=== PATIENT | male | born 1975 | race Caucasian/White ===

== ENCOUNTER 2018-03-23 07:39 | Day surgery (SDC) | payer BC ==
[2018-03-23] MEDS: Lactated Ringers 1,000 ML IV SCH (08:39)
[2018-03-23] MEDS: Simethicone Drops 40 MG/0.6 ML 30 ML Bottle ONE ×2 (09:28)
--- NOTE | 2018-03-23 09:40 | PCM.OPNOTE ---
- General Post-Op/Procedure Note Date of Surgery/Procedure: 03/23/18 Operative Procedure(s): c scope Findings: internal hemorrhoids Pre Op Diagnosis: hematochezia Post-Op Diagnosis: internal hemorrhoids Anesthesia Technique: GLEN Primary Surgeon: Chandra Woodard Anesthesia Provider: Wang Rodgers Pathology: none Complications: None Condition: Good Free Text/Narrative:: see dictation [id number]
--- NOTE | 2018-03-23 10:01 | OR ---
DATE OF OPERATION: 03/23/2018 SURGEON: Chandra Woodard MD PROCEDURE PERFORMED: Colonoscopy. PREOPERATIVE DIAGNOSIS: Hematochezia. POSTOPERATIVE DIAGNOSIS: Internal hemorrhoids. INDICATIONS FOR PROCEDURE: This is a 42-year-old white male who was referred with a history of hematochezia. He was offered and accepted colonoscopy. DESCRIPTION OF PROCEDURE: After an excellent IV sedation was administered, digital rectal exam was performed. No marked abnormality was noted. Flexible colonoscope was inserted and advanced to the cecum without difficulty. The prep was excellent. The following findings were noted. Ascending colon, unremarkable. Transverse colon, unremarkable. Descending colon, unremarkable. Sigmoid, unremarkable. Rectum, unremarkable. On retroflexion of the scope, there was some evidence of internal hemorrhoids, which appears to be the cause of his bleeding. RECOMMENDATIONS: High-fiber diet. Follow up on a p.r.n. basis. Repeat scope in 10 years. /[id number] /MODL
== END 2018-03-23 10:43 | disposition home or self-care (01) ==
LOC: FB.SDS 07:39
PROVIDERS: ATTEND Surgery
DX: K92.1 Melena (principal); K64.8 Other hemorrhoids; J45.909 Unspecified asthma, uncomplicated; F17.210 Nicotine dependence, cigarettes, uncomplicated; Z79.899 Other long term (current) drug therapy
CPT/HCPCS: A9270-GY; J7120